=== PATIENT | male | born 1985 | race Hispanic/Latino ===

== ENCOUNTER 2022-04-06 22:14 | Emergency (ER) | payer OTHER ==
[2022-04-06] MEDS ORDERED: KETOROLAC 30 MG/ML INJ ONE (22:46)
[2022-04-06] MEDS ORDERED: DIAZEPAM 5 MG TABLET ONE (22:47)
--- NOTE | 2022-04-07 00:44 | ER ---
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 as6 Coronavirus screen: At this time, the client does not indicate any symptoms associated with coronavirus-19. Ebola Screen: No symptoms or risks identified at this time. Initial Sepsis Screen: Does the patient meet any 2 criteria? No. Patient's initial sepsis screen is negative. Does the patient have a suspected source of infection? No. Patient's initial sepsis screen is negative. Risk Assessment: Do you want to hurt yourself or someone else? Patient reports no desire to harm self or others. Onset of symptoms was April 06, 2022 at 08:00. 22:29 Method Of Arrival: Ambulatory as6 22:29 Acuity: MIGUELITO 4 as6 Triage Assessment: 22:34 General: Appears uncomfortable, Behavior is calm, cooperative. Pain: Complains of pain as6 in low back area. Musculoskeletal: Reports pain in back. Historical: - Allergies: 22:31 Azithromycin; as6 - Home Meds: 22:31 phentermine 8 mg oral tab [Active]; as6 - PSHx: 22:31 spinal fusion; as6 - Immunization history:: Client reports receiving the 2nd dose of the Covid vaccine, moderna Flu vaccine is up to date. - Social history:: Smoking status: Reported history of juuling and/or vaping. Screenin:34 Abuse screen: Denies threats or abuse. Denies injuries from another. Nutritional as6 screening: No deficits noted. Tuberculosis screening: No symptoms or risk factors identified. Fall Risk None identified. Assessment: 04/07 00:49 General: Appears in no apparent distress. Behavior is calm, cooperative, appropriate tw5 for age, Reports "I hurt my back at work.". Neuro: No deficits noted. Respiratory: No deficits noted. GI: No deficits noted. Musculoskeletal: No deficits noted. Range of motion: intact in all extremities. Vital Signs: 04/06 22:29 BP 135 / 96; Pulse 89; Resp 18 S; Temp 97.7(TE); Pulse Ox 99% on R/A; Weight 92.99 kg as6 (R); Height 5 ft. 11 in. (180.34 cm) (R); Pain 6/10; 22:29 Body Mass Index 28.59 (92.99 kg, 180.34 cm) as6 ED Course: 22:17 Patient arrived in ED. bp1 22:22 Jerad Ramires NP is PHCP. pm1 22:22 Jake Fisher DO is Attending Physician. pm1 22:31 Triage completed. as6 22:32 Jerad Ramires NP is PHCP. pm1 22:34 Arm band placed on. as6 22:34 Call light in reach. as6 22:47 Kaz Ruiz, TIKA is Primary Nurse. as6 12 00:05 Lumbar Spine (3 Views) XRAY In Process Unspecified. EDMS 00:48 No provider procedures requiring assistance completed. Patient did not have IV access tw5 during this emergency room visit. Administered Medications: 04/06 22:42 CANCELLED (Physician Discretion): HYDROcodone-acetaminophen 5 mg-325 mg 1 tabs PO once pm1 22:47 Drug: Valium (diazepam) 5 mg Route: PO; as6 12 00:49 Follow up: Response: No adverse reaction; Pain is decreased tw5 04/06 22:47 Drug: Ketorolac 15 mg Route: IM; Site: left deltoid; as6 12 00:49 Follow up: Response: No adverse reaction; Pain is decreased tw5 Medication: 04/06 22:35 VIS not applicable for this client. as6 Outcome: 04/07 00:43 Discharge ordered by . pm1 00:48 Discharged to home ambulatory, with friend. tw5 00:48 Condition: improved 00:48 Discharge instructions given to patient, Instructed on discharge instructions, follow up and referral plans. medication usage, Demonstrated understanding of instructions, follow-up care, medications, Prescriptions given X 1. 00:49 Patient left the ED. tw5 Signatures: Dispatcher [employer] EDMS Jerad Ramires NP UTILITY SPRAY OPERATOR pm1 Rosemary Holley Tiffany tw5 Kaz Ruiz, TIKA RN as6
--- NOTE | 2022-04-07 00:44 | EDPHYS ---
Physician Documentation [facility] Name: Abhijeet Arguelles Age: 36 yrs Sex: Male : 1985 Arrival Date: 04/06/2022 Time: 22:17 Bed DIS3 Private MD: ED Physician Jake Fisher HPI: 04/06 23:25 This 36 yrs old Male presents to ER via Ambulatory with complaints of Back pm1 Pain. 23:25 The patient presents with pain that is acute. The symptoms are located in the low back. pm1 Onset: The symptoms/episode began/occurred today. The pain does not radiate. Associated signs and symptoms: Pertinent negatives: incontinence, numbness, weakness. The problem was sustained pushing patient in stretcher through wet grass. Patient reports history of scoliosis with surgery, rods to lower back as a teenager.. Modifying factors: The patient symptoms are alleviated by remaining still, the patient symptoms are aggravated by movement. Severity of symptoms: in the emergency department the symptoms are unchanged. The patient has not recently seen a physician. Historical: - Allergies: 22:31 Azithromycin; as6 - Home Meds: 22:31 phentermine 8 mg oral tab [Active]; as6 - PSHx: 22:31 spinal fusion; as6 - Immunization history:: Client reports receiving the 2nd dose of the Covid vaccine, moderna Flu vaccine is up to date. - Social history:: Smoking status: Reported history of juuling and/or vaping. ROS: 23:25 Constitutional: Negative for fever, chills, and weight loss, Cardiovascular: Negative pm1 for chest pain, palpitations, and edema, Respiratory: Negative for shortness of breath, cough, wheezing, and pleuritic chest pain. 23:25 MS/Extremity: Negative for injury and deformity, Skin: Negative for injury, rash, and discoloration. 23:25 Neuro: Negative for headache, weakness, numbness, tingling, and seizure. 23:25 Back: Positive for of the low back area. 23:25 All other systems are negative. Exam: 23:25 Constitutional: This is a well developed, well nourished patient who is awake, alert, pm1 and in no acute distress. Head/Face: Normocephalic, atraumatic. 23:25 Skin: Warm, dry with normal turgor. Normal color with no rashes, no lesions, and no evidence of cellulitis. MS/ Extremity: Pulses equal, no cyanosis. Neurovascular intact. Full, normal range of motion. 23:25 Eyes: Exam is negative for acute changes, Conjunctiva: no acute changes. 23:25 ENT: Exam is negative for acute changes, Mouth: no acute changes, Lips: normal, moist, Oral mucosa: normal, pink and intact, moist. 23:25 Cardiovascular: Exam negative for acute changes, Rate: normal, Rhythm: regular, Pulses: no pulse deficits are appreciated. 23:25 Respiratory: Exam negative for acute changes, respiratory distress, shortness of breath. 23:25 Back: pain, that is moderate, muscle spasm, is appreciated in the low back area. 23:25 Neuro: Exam negative for acute changes, Orientation: is normal, Mentation: is normal, Motor: is normal, moves all fours. Vital Signs: 22:29 BP 135 / 96; Pulse 89; Resp 18 S; Temp 97.7(TE); Pulse Ox 99% on R/A; Weight 92.99 kg as6 (R); Height 5 ft. 11 in. (180.34 cm) (R); Pain 6/10; 22:29 Body Mass Index 28.59 (92.99 kg, 180.34 cm) as6 MDM: 22:28 Patient medically screened. pm1 23:29 Data reviewed: vital signs. Data interpreted: Pulse oximetry: on room air is 99 %. pm1 Interpretation: normal. 12 00:42 Counseling: I had a detailed discussion with the patient and/or guardian regarding: the pm1 historical points, exam findings, and any diagnostic results supporting the discharge/admit diagnosis, radiology results, the need for outpatient follow up, to return to the emergency department if symptoms worsen or persist or if there are any questions or concerns that arise at home. 00:47 ED course: [place] reviewed. pm1 12 22:42 Order name: Lumbar Spine (3 Views) XRAY pm1 Administered Medications: 04/06 22:42 CANCELLED (Physician Discretion): HYDROcodone-acetaminophen 5 mg-325 mg 1 tabs PO once pm1 22:47 Drug: Valium (diazepam) 5 mg Route: PO; as6 12 00:49 Follow up: Response: No adverse reaction; Pain is decreased tw5 04/06 22:47 Drug: Ketorolac 15 mg Route: IM; Site: left deltoid; as6 04/07 00:49 Follow up: Response: No adverse reaction; Pain is decreased tw5 Disposition: 02:37 Co-signature as Attending Physician, Jake SILVA was immediately available onsite ms3 in the emergency department for consultation in the care of the patient. Disposition Summary: 04/07/22 00:43 Discharge Ordered Location: Home pm1 Problem: new pm1 Symptoms: have improved pm1 Condition: Stable pm1 Diagnosis - Low back pain pm1 Followup: pm1 - With: Emergency Department - When: As needed - Reason: Worsening of condition Followup: pm1 - With: Private Physician - When: 2 - 3 days - Reason: Recheck today's complaints, Continuance of care, Re-evaluation by your physician Discharge Instructions: - Discharge Summary Sheet pm1 - Acute Back Pain, Adult pm1 - Musculoskeletal Pain pm1 - Back Injury Prevention, [id number] pm1 Forms: - Work release form pm1 - Medication Reconciliation Form pm1 - Thank You Letter pm1 - Antibiotic Education pm1 - Prescription Opioid Use pm1 Prescriptions: - Valium 5 mg Oral Tablet - take 1 tablet by ORAL route every 8 hours As needed; 6 tablet; Refills: 0, pm1 Product Selection Permitted Signatures: Dispatcher [employer] Jerad Bullard, DATA CENTER TECHNICIAN DATA CENTER TECHNICIAN pm1 Jake Fisher DO DO ms3 Kaz Ruiz RN RN as6 Ekaterina Fountain tw5 Corrections: (The following items were deleted from the chart) 04/06 22:42 22:31 HYDROcodone-acetaminophen 5 mg-325 mg 1 tabs PO once ordered. ms3 pm1
[2022-04-07 01:08] VITALS: BP 135/96; TEMP 97.7; O2SAT 99
--- NOTE | 2022-04-07 19:21 | RAD REPORT ---
EXAM DESCRIPTION: RAD - Lumbar Spine 3 Views - 04/07/2022 12:02 am CLINICAL HISTORY: The patient is 36 years old and is Male; LOWER BACK PAIN TECHNIQUE: Frontal and lateral views of the lumbar spine and sacrum. COMPARISON: Lumbar spine radiographs June 03, 2020 FINDINGS: VERTEBRAE: Partially visualized spinal rods extending L2 is noted. The hardware is engag ed in unchanged in position from prior exam. 5 lumbar-type nonrib-bearing vertebral bodies are pres ent. No acute fracture. Normal alignment. SACRUM/COCCYX: Unremarkable as visualized. No acute fracture. DISC SPACES: No acute findings. No significant narrowing. SOFT TISSUES: Unremarkable. IMPRESSION: No acute findings in the lumbar spine. Electronically signed by: Ashly Musa MD 04/07/2022 12:11 AM MARKET SALES MANAGER Due to temporary technical issues with the PACS/Fluency reporting system, reports are being signed by the in house radiologists without review as a courtesy to insure prompt reporting. The interpreting radiologist is fully responsible for the content of the report.
== END 2022-04-07 00:49 | disposition home or self-care (01) ==
LOC: ER 22:14
DX: M54.50 Low back pain, unspecified (principal)
CPT/HCPCS: 72100; 96372; 99283